=== PATIENT | female | born 1980 | race African-American/Black ===

== ENCOUNTER 2016-11-09 19:37 | Emergency (ER) | payer OTHER ==
[~2016-11-09] VITALS: Ht 162.6 cm; Wt 84.8 kg
[~2016-11-09 19:37] MED LIST: ACETAMINOPHEN-1 EAC1 PO; ALEVE220 MG PO; ALLEGRA180 MG PO; BACTRIM 400-801 EACH; BACTRIM DS TAB1 EACH PO; CEPHALEXIN 500500 M3 PO; CIPRO250 M1 PO; CIPROFLOXACIN500 M1 PO; CLEOCIN HCL150 MG PO; DOXYCYCLINE 10100 MG PO; FERROUS GLUCON325 M4 PO; FLAGYL500 MG PO; FLEXERIL PO; HYDROCODON-ACE1 EAC5 PO; HYDROCODONE-AC120 ML PO; HYDROCODONE-ACE15 ML PO; HYDROCODONE-AP1 EAC6 PO; IBUPROFEN 800800 MG PO; KEFLEX500 MG PO; LOESTRIN1 EAC1 PO; LORATIDINE 10 M10 M1 PO; MACROBID 100 M100 M1 PO; MEDROLDOSEPACK PO; MIDOL220 MG PO; MIRALAX255 GM PO; NOHOMEMEDICATIONS; NORCO 5-325 TA1 EACH PO; PENICILLIN VK500 M1 PO; PEPCID PO; PERCOCET 5-3251 EACH PO; PHENERGAN 25 MG25 M1 PO; PHENERGAN50 MG RC; POTASSIUM20 PO; PRENA1 PEARL S1 EACH PO; PROAIR HFA8.5 GM IH; ROBAXIN 750 MG750 M1 PO; TUSSIONEX PENN473 ML PO; TYLENOL W/CODEI1 TA2 PO; TYLENOL325 MG PO; ULTRAM 50MG TAB50 MG PO; UNISOM SLEEP AI25 MG PO; VENTOLIN HFA 1818 GM INH; ZOFRAN ODT4 MG PO; ZOFRAN4 MG PO; ZPAK PO
[2016-11-09] MEDS ORDERED: NORCO 5-325 TA1 EACH PO (20:52)
[2016-11-09] MEDS ORDERED: VALIUM5 MG PO (21:13)
== END 2016-11-09 21:50 | disposition home or self-care (01) ==
LOC: ER 19:37
DX: S16.1XXA Strain of muscle, fascia and tendon at neck level, initial encounter (principal); S29.012A Strain of muscle and tendon of back wall of thorax, initial encounter; J45.909 Unspecified asthma, uncomplicated; Z86.73 Personal history of transient ischemic attack (TIA), and cerebral infarction without residual deficits; F32.9 Major depressive disorder, single episode, unspecified; Z88.6 Allergy status to analgesic agent; F10.99 Alcohol use, unspecified with unspecified alcohol-induced disorder; V43.52XA Car driver injured in collision with other type car in traffic accident, initial encounter; Y93.89 Activity, other specified; Y92.89 Other specified places as the place of occurrence of the external cause; Y99.8 Other external cause status

== ENCOUNTER → 2017-11-02 | Outpatient (CLI) | payer OTHER ==
[~2017-11-02] MED LIST changes: +NAPROSYN500 MG PO; +VALIUM5 MG PO
== END ==
LOC: CAT 11-01 06:33
DX: G43.909 Migraine, unspecified, not intractable, without status migrainosus (principal)

== ENCOUNTER 2018-08-25 08:16 | Emergency (ER) | payer OTHER ==
[~2018-08-25] VITALS: Ht 162.6 cm; Wt 88.0 kg
[2018-08-25 08:34] LABS: URINE BILIRUBIN NEGATIVE (Negative); URINE BLOOD NEGATIVE (Negative); URINE CLARITY CLEAR; URINE COLOR YELLOW; URINE GLUCOSE-RANDOM* NEGATIVE (Negative); URINE KETONES NEGATIVE (Negative); URINE LEUKOCYTES-REFLEX NEGATIVE (Negative); URINE NITRITE-REFLEX NEGATIVE (Negative); URINE PROTEIN (DIPSTICK) NEGATIVE (Negative); URINE UROBILINOGEN 0.2 E.U./dl (0.2-1.0)
[2018-08-25 09:29] LABS: ABSOLUTE NEUTROPHILS 6.4 thou/uL (1.4-8.2); BASOPHILS 0.3 % (0.0-2.0); EOSINOPHILS 0.8 % (0.0-3.0); HEMATOCRIT 37.3 % (37.0-47.0); LYMPHOCYTES 19.8 % (24.0-44.0); MCH 30.9 pg (26.0-34.0); MCV 88.5 fL (80.0-100.0); PLATELET COUNT 248 thou/uL (150-400); POLYS 72.1 % (36.0-66.0); RBC 4.21 mil/uL (4.20-5.00); RDW 14.5 % (10.5-14.5); WBC 8.9 thou/uL (4.0-11.0)
[2018-08-25 09:37] LABS: CALCIUM 9.1 mg/dL (8.5-10.1); CREATININE 0.6 mg/dL (0.6-1.0)
[2018-08-25 11:31] VITALS: BP 121/68
== END 2018-08-25 11:25 | disposition home or self-care (01) ==
LOC: ER 08:16
PROVIDERS: Student in an Organized Health Care Education/Training Program
DX: O20.0 Threatened abortion (principal); Z3A.12 12 weeks gestation of pregnancy; O23.591 Infection of other part of genital tract in pregnancy, first trimester; B37.3 Candidiasis of vulva and vagina; O99.511 Diseases of the respiratory system complicating pregnancy, first trimester; J45.909 Unspecified asthma, uncomplicated; Z87.891 Personal history of nicotine dependence

== ENCOUNTER 2018-09-13 07:43 | Emergency (ER) | payer OTHER ==
[~2018-09-13] VITALS: Ht 162.6 cm; Wt 88.9 kg
[2018-09-13 07:48] VITALS: BP 115/78
[2018-09-13] MEDS ORDERED: VALACYCLOVIR1000 MG PO (08:10)
== END 2018-09-13 08:32 | disposition home or self-care (01) ==
LOC: ER 07:43
DX: O98.511 Other viral diseases complicating pregnancy, first trimester (principal); B02.9 Zoster without complications; O99.511 Diseases of the respiratory system complicating pregnancy, first trimester; J45.909 Unspecified asthma, uncomplicated; Z3A.12 12 weeks gestation of pregnancy; Z86.73 Personal history of transient ischemic attack (TIA), and cerebral infarction without residual deficits; Z87.891 Personal history of nicotine dependence; Z88.6 Allergy status to analgesic agent

== ENCOUNTER 2018-11-23 17:41 | Emergency (ER) | payer OTHER ==
[~2018-11-23] VITALS: Ht 162.6 cm; Wt 90.3 kg
[~2018-11-23 17:41] MED LIST changes: +VALACYCLOVIR1000 MG PO
[2018-11-23 18:02] LABS: URINE BILIRUBIN NEGATIVE (Negative); URINE BLOOD NEGATIVE (Negative); URINE CLARITY CLEAR; URINE COLOR YELLOW; URINE GLUCOSE-RANDOM* NEGATIVE (Negative); URINE KETONES 3+ (Negative); URINE LEUKOCYTES-REFLEX 1+ (Negative); URINE NITRITE-REFLEX NEGATIVE (Negative); URINE PROTEIN (DIPSTICK) TRACE (Negative); URINE SPECIFIC GRAVITY >= 1.030 (1.005-1.035); URINE UROBILINOGEN 0.2 E.U./dl (0.2-1.0)
[2018-11-23 18:10] LABS: BACTERIA-REFLEX >30 Many /HPF (None Seen); CASTS None Seen /LPF (None Seen); CRYSTALS None Seen /LPF (None Seen); MUCUS >6 Heavy strn/LPF (None Seen); SQUAMOUS >10 Many /LPF (0-3); URINE WBC-REFLEX >25 Many /HPF (0-5); WBC CLUMPS Moderate (None Seen)
[2018-11-23 18:35] VITALS: BP 121/74
[2018-11-23 18:42] LABS: ABSOLUTE NEUTROPHILS 8.1 thou/uL (1.4-8.2); BASOPHILS 0.4 % (0.0-2.0); EOSINOPHILS 0.9 % (0.0-3.0); HEMATOCRIT 35.9 % (37.0-47.0); HEMOGLOBIN 12.1 gm/dL (12.0-15.0); LYMPHOCYTES 15.2 % (24.0-44.0); MCH 29.3 pg (26.0-34.0); MCHC 33.6 g/dL (28.0-37.0); MONOCYTES 6.5 % (1.0-8.0); PLATELET COUNT 237 thou/uL (150-400); RBC 4.13 mil/uL (4.20-5.00); WBC 10.5 thou/uL (4.0-11.0)
[2018-11-23 18:50] LABS: ALBUMIN 3.2 g/dL (3.4-5.0); CALCIUM 9.1 mg/dL (8.5-10.1); CREATININE 0.5 mg/dL (0.6-1.0); TOTAL BILIRUBIN 1.2 mg/dL (<0.1-1.0); TOTAL PROTEIN 7.7 g/dL (6.4-8.2)
[2018-11-23 18:52] LABS: POTASSIUM 2.7 mmol/L (3.5-5.1)
== END 2018-11-23 18:32 | disposition short-term general hospital (02) ==
LOC: ER 17:41
PROVIDERS: Emergency Medicine
DX: O23.42 Unspecified infection of urinary tract in pregnancy, second trimester (principal); O99.512 Diseases of the respiratory system complicating pregnancy, second trimester; O99.342 Other mental disorders complicating pregnancy, second trimester; J45.909 Unspecified asthma, uncomplicated; Z87.891 Personal history of nicotine dependence; Z3A.25 25 weeks gestation of pregnancy

== ENCOUNTER 2021-01-19 09:09 | Emergency (ER) | payer OTHER ==
[~2021-01-19] VITALS: Ht 162.6 cm; Wt 112.5 kg
[2021-01-19] MEDS ORDERED: AMOXICILLIN500 M1 PO (10:13)
[2021-01-19 10:38] VITALS: BP 134/81
== END 2021-01-19 10:39 | disposition home or self-care (01) ==
LOC: ER 09:09
PROVIDERS: Emergency Medicine
DX: J02.0 Streptococcal pharyngitis (principal); Z20.822 Contact with and (suspected) exposure to COVID-19; J45.909 Unspecified asthma, uncomplicated; F32.9 Major depressive disorder, single episode, unspecified; M19.90 Unspecified osteoarthritis, unspecified site; Z87.891 Personal history of nicotine dependence; Z88.6 Allergy status to analgesic agent

== ENCOUNTER 2021-04-20 16:43 | Emergency (ER) | payer OTHER ==
[~2021-04-20] VITALS: Ht 162.6 cm; Wt 79.4 kg
[~2021-04-20 16:43] MED LIST changes: +AMOXICILLIN500 M1 PO
[2021-04-20 17:29] LABS: ABSOLUTE NEUTROPHILS 3.9 thou/uL (1.4-8.2); BASOPHILS 0.6 % (0.0-2.0); HEMOGLOBIN 10.7 gm/dL (12.0-15.0); LYMPHOCYTES 25.6 % (24.0-44.0); MCH 25.6 pg (26.0-34.0); MCHC 32.3 g/dL (28.0-37.0); MCV 79.1 fL (80.0-100.0); MONOCYTES 7.3 % (1.0-8.0); PLATELET COUNT 260 thou/uL (150-400); POLYS 65.5 % (36.0-66.0); RBC 4.17 mil/uL (4.20-5.00); RDW 15.9 % (10.5-14.5)
[2021-04-20 17:43] LABS: ALBUMIN 3.9 g/dL (3.4-5.0); CALCIUM 8.6 mg/dL (8.5-10.1); CREATININE 0.9 mg/dL (0.6-1.0); POTASSIUM 3.5 mmol/L (3.5-5.1); TOTAL BILIRUBIN 0.2 mg/dL (0.2-1.0); TOTAL PROTEIN 7.6 g/dL (6.4-8.2)
[2021-04-20 21:39] VITALS: BP 136/93
--- NOTE | 2021-04-21 07:49 | EKG ---
[place] [address] [employer] [facility] [place] [address] ELECTROCARDIOGRAM REPORT Name: LILLIANA JIN GONZALEZ Room #: [id number] Admission: 04/20/21 Attend Phys: Discharge: 04/20/21 Date of : 84 Report #: [id number] [facility] ED Test Date: 2021-04-20 Test Time: 18:32:19 Pat Name: LILLIANA JIN Department: Room: Gender: F Operational Trainer: donna : 1980 Requested By: Emmie Bhat Order Number: [id number] MD: Geoff Turk Measurements Intervals [place] Rate: 66 P: 51 NH: 160 QRS: -14 QRSD: 108 T: 11 QT: 391 QTc: 410 Interpretive Statements Sinus rhythm Compared to ECG 09/18/2015 21:30:51 Poor R-wave progression no longer present Electronically Signed On 04-21-2021 7:49:11 [employer] by Geoff Turk [email or web address] <ELECTRONICALLY SIGNED> By: Geoff Turk MD, [facility] 04/21/21 [id number] Geoff Turk MD, FACC /EPI
== END 2021-04-20 21:35 | disposition home or self-care (01) ==
LOC: ER 16:43
PROVIDERS: Emergency Medicine
DX: R07.89 Other chest pain (principal); Z20.822 Contact with and (suspected) exposure to COVID-19; D32.0 Benign neoplasm of cerebral meninges; R20.0 Anesthesia of skin; J45.909 Unspecified asthma, uncomplicated; F32.9 Major depressive disorder, single episode, unspecified; M19.90 Unspecified osteoarthritis, unspecified site; F12.90 Cannabis use, unspecified, uncomplicated; Z85.841 Personal history of malignant neoplasm of brain; Z87.891 Personal history of nicotine dependence